=== PATIENT | female | born 1995 | race Caucasian/White ===

== ENCOUNTER 2023-07-18 00:02 | Inpatient (IN) | payer OTHER ==
[~2023-07-18] VITALS: Ht 157.5 cm; Wt 122.5 kg
[~2023-07-18 00:02] MED LIST: CALCIUM CARBONATE 500 MG CHEW PO PRN; LACTATED RINGER'S 1,000 ML IV SCH; MAGNESIUM HYDROXIDE/AL HYDROX 30 ML CUP PO PRN; PENICILLIN G POTASSIUM 5 MUNITS/110 ML PIGGYBACK IV ONE; miSOPROStoL 25 MCG TAB PV SCH
[2023-07-18 00:47] LABS: HEMATOCRIT 36.6 % (35.0-50.0); HEMOGLOBIN 12.6 g/dL (12.0-18.0); MCH 29.6 (27-36); MCHC 34.3 g/dl (30-36); MCV 86.5 fl (81-99); RBC 4.24 M/ul (4.3-5.7); RDW 15.1 (10.5-15.0)
[2023-07-18 00:59] VITALS: BP 130/85
[2023-07-18 00:59] LABS: AMPHETAMINES, URINE NEGATIVE (NEGATIVE); BARBITURATES, URINE NEGATIVE (NEGATIVE); BENZODIAZEPINE, URINE NEGATIVE (NEGATIVE); BUPRENORPHINE, URINE NEGATIVE (NEGATIVE); CANNABINOID, URINE NEGATIVE (NEGATIVE); COCAINE, URINE NEGATIVE (NEGATIVE); ECSTASY, URINE NEGATIVE (NEGATIVE); FENTANYL, URINE NEGATIVE (NEGATIVE); METHADONE, URINE NEGATIVE (NEGATIVE); OPIATES, URINE NEGATIVE (NEGATIVE); OXYCODONE, URINE NEGATIVE (NEGATIVE); PHENCYCLIDINE, URINE NEGATIVE (NEGATIVE)
[2023-07-18 01:23] LABS: ABO O; ANTIBODY SCREEN NEGATIVE; RH POSITIVE
[2023-07-18] MEDS ORDERED: PENICILLIN G POTASSIUM 2.5 MUNITS in DEXTROSE 5% 100 ML IV SCH (04:00)
--- NOTE | 2023-07-18 08:31 | PR ---
[facility] [address] [facility] [place], [place] [address] Signed Progress Notes IP Datetime Report Generated by CPN: 07/18/2023 08:31 PROGRESS NOTES: [id number] Impression: Reassuring Heart Rate Procedures: Sterile Vag Exam Plan: Continue Present Management VITAL SIGNS: [id number] Vital Signs: Reviewed VS Notable Details: mild HTN EXAM: [id number] Dilatation: 1.0 Effacement: 50 Station: -3 Contractions: q 2 to 4 min MEMBRANES: [id number] Comments: Starting to feel some contractions. status very reassuring currently with improved variability and accels. Having too many contractions to repeat Cytotec. Will wait a little while and then probably proceed with AROM. FETUS A: [id number] FHR Baseline: 115 Variability: Moderate 6-25bpm Accelerations: 10X10 Decelerations: None FHR Category: Category I Presentation: Vertex Comments on Fetus A: overall reassuring FETUS B: [id number] Signing Physician: Amy Goncalves MD Copies: ~ *Electronically Signed* 07/18/23830 AMY GONCALVES MD PATIENT NAME: SAMIR THOMPSON PROGRESS NOTE DATE OF : 97 PHYSICIAN: AMY GONCALVES MD RPT #: [id number] REPORT IS CONFIDENTIAL AND NOT TO BE RELEASED WITHOUT AUTHORIZATION
--- NOTE | 2023-07-18 12:51 | PR ---
[facility] [address] [place], [place] [address] Signed Progress Notes IP Datetime Report Generated by CPN: 07/18/2023 12:51 PROGRESS NOTES: [id number] Impression: Reassuring Heart Rate Procedures: Artificial ROM; Sterile Vag Exam Plan: Continue Present Management VITAL SIGNS: [id number] Vital Signs: Reviewed VS Notable Details: mild HTN EXAM: [id number] Dilatation: 1.5 Effacement: 75 Station: -2 Contractions: q 1 to 3 min MEMBRANES: [id number] Comments: Some progress. Hopefully, AROM will increase contraction strength. Will start pen G now. FETUS A: [id number] FHR Baseline: 115 Variability: Moderate 6-25bpm Accelerations: 10X10 Decelerations: None FHR Category: Category I Presentation: Vertex Comments on Fetus A: overall reassuring FETUS B: [id number] Signing Physician: Amy Goncalves MD Copies: ~ *Electronically Signed* 07/18/23 7091 AMY GONCALVES MD PATIENT NAME: SAMIR THOMPSON PROGRESS NOTE DATE OF : 97 PHYSICIAN: AMY GONCALVES MD RPT #: [id number] REPORT IS CONFIDENTIAL AND NOT TO BE RELEASED WITHOUT AUTHORIZATION
[2023-07-18] MEDS ORDERED: PENICILLIN G POTASSIUM 5 MUNITS/110 ML PIGGYBACK IV ONE (13:00)
[2023-07-18] MEDS ORDERED: ROPIVACAINE 0.2% 200 ML BAG ONE (14:31)
[2023-07-18] MEDS ORDERED: ePHEDrine sulfate 5 MG/ML SYRINGE IV PRN (16:00)
[2023-07-18] MEDS ORDERED: ROPIVACAINE 0.2% 200 ML BAG EPIDURAL SCH (16:00)
[2023-07-18] MEDS ORDERED: LACTATED RINGER'S 500 ML IV PRN (16:00)
[2023-07-18] MEDS ORDERED: LACTATED RINGER'S 2,000 ML IV ONE (16:00)
[2023-07-18] MEDS ORDERED: ePHEDrine KIT FOR FBC IV ONE (16:44)
--- NOTE | 2023-07-18 18:07 | PR ---
[facility] [address] [facility] [place], [place] [address] Signed Progress Notes IP Datetime Report Generated by CPN: 07/18/2023 18:07 PROGRESS NOTES: [id number] Impression: Normal Progression of Labor; Reassuring Heart Rate Procedures: Intrauterine Pressure Catheter; Scalp Electrode; Sterile Vag Exam Plan: Continue Present Management VITAL SIGNS: [id number] Vital Signs: Reviewed VS Notable Details: mild HTN EXAM: [id number] Dilatation: 3.0 Effacement: 80 Station: -2 Contractions: q 1 to 3 min MEMBRANES: [id number] Comments: Comfortable after epidural. BP improved after ephedrine and strip reassuring. Will place IUPC and augment if needed. FETUS A: [id number] FHR Baseline: 115 Variability: Moderate 6-25bpm Accelerations: 10X10 Decelerations: None FHR Category: Category I Presentation: Vertex Comments on Fetus A: overall reassuring FETUS B: [id number] Signing Physician: Amy Goncalves MD Copies: ~ *Electronically Signed* 07/18/23 180 AMY GONCALVES MD PATIENT NAME: SAMIR THOMPSON PROGRESS NOTE DATE OF : 97 PHYSICIAN: AMY GONCALVES MD RPT #: [id number] REPORT IS CONFIDENTIAL AND NOT TO BE RELEASED WITHOUT AUTHORIZATION
[2023-07-18] MEDS ORDERED: OXYTOCIN/0.9 % SODIUM CHLORIDE 500 ML IV SCH (18:15)
[2023-07-18] MEDS ORDERED: ondansetron HCL 4 MG/2 ML VIAL ONE (21:58)
[2023-07-18] MEDS ORDERED: ondansetron HCL 4 MG/2 ML VIAL IV ONE (22:00)
[2023-07-18] MEDS ORDERED: OXYTOCIN/DEXTROSE 5% 20 UNITS/100 ML BAG IV SCH (22:00)
[2023-07-19] MEDS ORDERED: TRANEXAMIC ACID IN NACL,ISO-OS 0 ML IV ONE (04:21)
[2023-07-19] MEDS ORDERED: CALCIUM CARBONATE 500 MG CHEW PO PRN (05:00)
[2023-07-19] MEDS ORDERED: HEParin SOD (PORCINE) 5,000 UNIT/0.5 ML SYR SUB-Q SCH ×2 (05:00→19:00)
[2023-07-19] MEDS ORDERED: LIDOCAINE 2% VISCOUS 6 ML SYR TOP ONE ×2 (05:00)
[2023-07-19] MEDS ORDERED: MAGNESIUM HYDROXIDE 30 ML UDC PO PRN (05:00)
[2023-07-19] MEDS ORDERED: IBUPROFEN 800 MG TAB PO PRN (05:00)
[2023-07-19] MEDS ORDERED: MAGNESIUM HYDROXIDE/AL HYDROX 30 ML CUP PO PRN (05:00)
[2023-07-19] MEDS ORDERED: WITCH HAZEL/GLYCERIN 1 EA PAD TOP PRN (05:00)
[2023-07-19] MEDS ORDERED: ACETAMINOPHEN 500 MG TAB PO PRN (05:00)
[2023-07-19] MEDS ORDERED: BENZOCAINE 60 ML AEROSOL TOP PRN (05:00)
[2023-07-19] MEDS ORDERED: OXYCODONE HCL 5 MG TAB PO PRN (05:00)
[2023-07-19] MEDS ORDERED: HYDROCORTISONE ACETATE 25 MG SUPP PR PRN (05:00)
[2023-07-19] MEDS ORDERED: OXYTOCIN/0.9 % SODIUM CHLORIDE 500 ML IV SCH (05:00)
[2023-07-19] MEDS ORDERED: LABETALOL HCL 100 MG/20 ML MDV ONE (05:37)
[2023-07-19] MEDS ORDERED: hydrALAZINE HCL 20 MG/ML VIAL IV PRN (05:45)
[2023-07-19] MEDS ORDERED: LABETALOL HCL 100 MG/20 ML MDV IV PRN ×3 (05:45)
[2023-07-19 05:47] VITALS: BP 169/88
[2023-07-19] MEDS ORDERED: LACTATED RINGER'S 1,000 ML IV SCH (06:45)
[2023-07-19] MEDS ORDERED: MAGNESIUM SULFATE 1,000 ML IV SCH (06:45)
[2023-07-19] MEDS ORDERED: CALCIUM GLUCONATE 1,000 MG/10 ML VIAL IV PRN (06:45)
--- NOTE | 2023-07-19 08:07 | PR ---
[facility] [address] [facility] [place] [address] Signed PP Progress Notes Datetime Report Generated by CPN: 07/19/2023 06:38 SUBJECTIVE: [id number] Pain: Within Normal Limits Vital Signs: [id number] Vital Signs: Reviewed Notable Details: severe HTN now improved after labetalol Cardiovascular: Not Done Respiratory: Not Done Abdomen/Uterus: Not Done Lochia: Not Done Vulva/Perineum: Not Done Progress: Abnormal IMPRESSION/PLAN/PROCEDURES: [id number] Impression: Induced Hypertension Other Plans: begin mag sulfate Progress Notes: Has had severe range BPs after delivery w/ improvement after IV labetalol. Will start mag sulfate prophylaxis. Discussed with patient and family. Signing Physician: Amy Goncalves MD Copies: ~ *Electronically Signed* 07/19/23 06 AMY GONCALVES MD PATIENT NAME: SAMIR THOMPSON PROGRESS NOTE DATE OF : 97 PHYSICIAN: AMY GONCALVES MD RPT #: [id number] REPORT IS CONFIDENTIAL AND NOT TO BE RELEASED WITHOUT AUTHORIZATION
[2023-07-19] MEDS ORDERED: SENNOSIDES/DOCUSATE 1 EA TAB PO SCH (09:00)
[2023-07-20 05:59] LABS: HEMATOCRIT 31.3 % (35.0-50.0); HEMOGLOBIN 10.6 g/dL (12.0-18.0); MCH 29.7 (27-36); MCHC 33.8 g/dl (30-36); MCV 87.7 fl (81-99); RBC 3.57 M/ul (4.3-5.7); RDW 15.4 (10.5-15.0)
--- NOTE | 2023-07-20 08:43 | PR ---
[facility] [address] [place], [place] [address] Signed PP Progress Notes Datetime Report Generated by CPN: 07/20/2023 08:43 SUBJECTIVE: [id number] Pain: Within Normal Limits Vital Signs: [id number] Vital Signs: Reviewed Notable Details: 120s to 130s over 70s to 80s Cardiovascular: Normal Respiratory: Normal Abdomen/Uterus: Abnormal Lochia: Normal Vulva/Perineum: Not Done Breasts: Not Done CVA Tenderness: Not Done Extremities: Normal Incision: Not Applicable Progress: Abnormal Exam Comments: Fundus firm, NT @ U-2. H/H 10.6/31.3, WBC 10.7, plat 239k IMPRESSION/PLAN/PROCEDURES: [id number] Impression: Normal Progression Other Impression: improved BPs Other Plans: Mag off, watch BPs Procedures: None Progress Notes: Doing well so far off of the mag. Will watch BPs today with probable D/C tomorrow if continues to do well. Signing Physician: Amy Goncalves MD Copies: ~ *Electronically Signed* 07/20/23 0843 AMY GONCALVES MD PATIENT NAME: SAMIR THOMPSON PROGRESS NOTE DATE OF : 97 PHYSICIAN: AMY GONCALVES MD RPT #: [id number] REPORT IS CONFIDENTIAL AND NOT TO BE RELEASED WITHOUT AUTHORIZATION
--- NOTE | 2023-07-21 07:34 | PR ---
[facility] [address] [facility] [place], [place] [address] Signed PP Progress Notes Datetime Report Generated by CPN: 07/21/2023 07:34 SUBJECTIVE: [id number] Pain: Within Normal Limits Vital Signs: [id number] Vital Signs: Reviewed Notable Details: 120s to 130s over 70s to 97 Cardiovascular: Not Done Respiratory: Not Done Abdomen/Uterus: Abnormal Lochia: Normal Vulva/Perineum: Not Done Breasts: Not Done CVA Tenderness: Not Done Extremities: Normal Incision: Not Applicable Progress: Abnormal Exam Comments: Fundus firm, NT @ U-2 IMPRESSION/PLAN/PROCEDURES: [id number] Impression: Normal Progression; Induced Hypertension Other Impression: improved BPs Plan: Discharge Other Plans: Mag off, watch BPs Procedures: None Progress Notes: Doing well. BPs w/o any severe range numbers. I feel she is stable for D/C. Signing Physician: Amy Goncalves MD Copies: ~ *Electronically Signed* 07/21/23 0734 AMY GONCALVES MD PATIENT NAME: SAMIR THOMPSON PROGRESS NOTE DATE OF : 97 PHYSICIAN: AMY GONCALVES MD RPT #: [id number] REPORT IS CONFIDENTIAL AND NOT TO BE RELEASED WITHOUT AUTHORIZATION
== END 2023-07-21 10:25 | disposition home or self-care (01) | DRG 807 ==
LOC: FBC 00:02
PROVIDERS: ADMIT Obstetrics & Gynecology; ATTEND Obstetrics & Gynecology
PROC: 10H07YZ Insertion of Other Device into Products of Conception, Via Natural or Artificial Opening (ICD-10-PCS; principal; 2023-07-19)
PROC: 10E0XZZ Delivery of Products of Conception, External Approach (ICD-10-PCS; 2023-07-19)
PROC: 3E0R3BZ Introduction of Anesthetic Agent into Spinal Canal, Percutaneous Approach (ICD-10-PCS; 2023-07-19)
PROC: 00HU33Z Insertion of Infusion Device into Spinal Canal, Percutaneous Approach (ICD-10-PCS; 2023-07-19)
PROC: 0KQM0ZZ Repair Perineum Muscle, Open Approach (ICD-10-PCS; 2023-07-19)
PROC: 10907ZC Drainage of Amniotic Fluid, Therapeutic from Products of Conception, Via Natural or Artificial Opening (ICD-10-PCS; 2023-07-19)
DX: O14.04 Mild to moderate pre-eclampsia, complicating childbirth (principal); Z37.0 Single live birth; O76 Abnormality in fetal heart rate and rhythm complicating labor and delivery; Z3A.39 39 weeks gestation of pregnancy; O13.4 Gestational [pregnancy-induced] hypertension without significant proteinuria, complicating childbirth; O99.824 Streptococcus B carrier state complicating childbirth; O70.1 Second degree perineal laceration during delivery; O69.81X0 Labor and delivery complicated by cord around neck, without compression, not applicable or unspecified
CPT/HCPCS: 01960; 36415; 80307; 83735; 85027; 86850; 86900; 86901; A9270; J1644; J2405; J2540; J2590; J2795; J3475; J7121